=== PATIENT | male | born 1970 | race Caucasian/White ===

== ENCOUNTER 2023-08-30 12:09 | Emergency (ER) | payer OTHER, BC ==
[2023-08-30] MEDS ORDERED: Diphtheria,Pertussis(Acell),Tetanus Vaccine 0.5 ML Syringe IM ONE (12:20)
== END 2023-08-30 13:06 | disposition home or self-care (01) ==
LOC: FB.ED 12:09
DX: S01.411A Laceration without foreign body of right cheek and temporomandibular area, initial encounter (principal); S00.83XA Contusion of other part of head, initial encounter; Z23 Encounter for immunization; V89.2XXA Person injured in unspecified motor-vehicle accident, traffic, initial encounter
CPT/HCPCS: 12013; 90471; 90715; 99283-25